=== PATIENT | female | born 1970 | race Caucasian/White ===

== ENCOUNTER 2017-09-21 17:49 | Emergency (ER) | payer OTHER ==
[~2017-09-21] VITALS: Ht 152.4 cm; Wt 83.0 kg
[~2017-09-21 17:49] MED LIST: ACYCLOVIR 5%; ALTACE10 M1 PO; ATORVASTATIN CA10 MG PO; AUGMENTIN 500M500 MG PO; INVOKANA300 MG PO; LEVOTHYROXINE0.1 MG PO; METFORMIN1000 MG PO; NORVASC 5MG TAB5 MG PO; PROTONIX 40MG T40 MG PO; REGLAN10 MG PO; TOPROL XL50 MG PO; TYLENOL500 MG PO
[2017-09-21 18:02] VITALS: BP 155/85
[2017-09-21] MEDS ORDERED: VIGAMOX3 ML OPH (19:56)
[2017-09-21] MEDS ORDERED: AUGMENTIN 875-1 EACH PO (19:56)
--- NOTE | 2017-09-21 19:57 | ED EYE COMPLAINT ---
History of Present Illness General Chief Complaint: Eye Problems Stated Complaint: REDDNESS TO R EYE, SEEN AT WALK IN [facility] Source: patient Exam Limitations: no limitations Vital Signs & Intake/Output Vital Signs & Intake/Output Vital Signs Date Time Temp Pulse Resp B/P B/P Pulse O2 O2 Flow FiO2 Mean Ox Delivery Rate 09/21 1802 96.0 95 20 155/85 97 Room Air Allergies Coded Allergies: sulfacetamide (ITCHING 09/21/17) Reconcile Medications Acetaminophen (Tylenol) 500 MG TAB 1 TAB PO PRN PAIN (Reported) Acyclovir (Unknown Strength) OIN (Unknown Dose) UNKNOWN (Reported) Amlodipine (Norvasc 5MG Tab) 5 MG TAB 1 TAB PO DAILY BP (Reported) Amoxicillin/Potassium Clav (Augmentin 875-125 Tablet) 875 MG-125 MG TABLET 1 TAB PO BID BLEPHARITIS Atorvastatin Calcium (Lipitor) 10 MG TAB 1 TAB PO DAILY CHOLESTEROL (Reported ) Augmentin (Augmentin 500-125 Tablet) 500 MG TAB 1 TAB PO BID ANTIBIOTIC ( Reported) Canagliflozin (Invokana) 300 MG TAB 1 TAB PO DAILY DIABETES (Reported) Levothyroxine Sodium 0.1 MG TAB 1 TAB PO DAILY THYROID (Reported) METFORMIN HCL (Metformin) 1,000 MG TAB 1 TAB PO BID DIABETES (Reported) METOCLOPRAMIDE HCL (Reglan) 10 MG TAB 1 TAB PO TID GI (Reported) 30 minutes before meals and bedtime Metoprolol Succinate (Toprol XL) [address] 1 TAB PO DAILY HEART (Reported) Moxifloxacin Hydrochloride (Vigamox) 0.5 % DROPS 1 GTT OPH TID BLEPHARTIS CONJNCTIVITIS Pantoprazole Sodium (Protonix) 40 MG TAB 40 MG PO DAILY ACID REFLUX Ramipril (Altace) 10 MG CAP 1 CAP PO DAILY BP (Reported) Triage Note: PT TO ED C/O RIGHT EYE REDNESS AND SWELLING. WENT TO WALK IN YESTERDAY AND GOT EYE DROPS. PT STATES THEY ARE NOT WORKING. Triage Nurses Notes Reviewed? yes Onset: Abrupt Duration: day(s): (1), constant, continues in ED, getting worse Timing: single episode today Injury Environment: home Severity: mild, moderate No Modifying Factors: none Right Eye Associated Symptoms: sensitivity to light, orbital swelling, eyelid redness, eyelid swelling LMP (ages 10-50): unknown : No Patient currently breastfeeds: No HPI: 46-year-old female past medical history of hypertension, hyperlipidemia, non- insulin-dependent diabetes presents for evaluation of right eye pain swelling and redness. Patient states symptoms started yesterday and have been persistent. She states that the pain swelling and redness is located mostly in the right upper lid and has been getting worse. She also reports that her eyeball itself is been red and irritated. She does report photophobia. There is been some clear discharge. Pain is worse with touching the eyelid. No pain with extra active motion no changes in vision she does not wear eye contact. No fevers. No sore throat ear pain chest pain shortness of breath or any other associated symptoms. She went to an urgent care yesterday and was given a prescription for Polytrim which she has been using without any improvement. (Juaquin Reyna) Past History Travel History Traveled to [place] past 21 day No Medical History Any Pertinent Medical History? see below for history Cardiovascular: hypertension, hyperlipidemia Endocrine: diabetes Surgical History Surgical History: non-contributory Psychosocial History What is your primary language Hungarian Tobacco Use: Never used ETOH Use: denies use Illicit Drug Use: denies illicit drug use Family History Hx Contributory? No (Juaquin Reyna) Review of Systems Review of Systems Constitutional: Reports: no symptoms. Eyes: Reports: see HPI, drainage, inflammation, pain, photophobia. Ear: Reports: no symptoms. Nose: Reports: no symptoms. Mouth: Reports: no symptoms. Throat: Reports: no symptoms. Respiratory: Reports: no symptoms. Cardiovascular: Reports: no symptoms. GI: Reports: no symptoms. Genitourinary: Reports: no symptoms. Musculoskeletal: Reports: no symptoms. Skin: Reports: no symptoms. Neurological/Psychological: Reports: no symptoms. Hematologic/Endocrine: Reports: no symptoms. Immunologic/Allergic: Reports: no symptoms. All Other Systems: Reviewed and Negative (Juaquin Reyna) Physical Exam General Appearance: well developed/nourished, no apparent distress, alert, awake General Inspection: normal inspection Eyelid: normal inspection, everted for exam Conjunctiva/Sclera: normal inspection, see diagram Cornea: normal inspection EOM: intact Pupil: normal accommodation, normal pupil, PERRL Anterior Chamber: normal inspection General Inspection: periorbital swelling Eyelid: everted for exam, edema, erythema Conjunctiva/Sclera: injected Cornea: normal inspection EOM: intact Pupil: normal accommodation, normal pupil, PERRL Anterior Chamber: normal inspection Posterior Segments: normal funduscopic Physical Exam Head: atraumatic, normal appearance Ears: Bilateral: canal normal, Tympanic normal. Nose: normal inspection Mouth/Throat: normal mouth inspection, pharynx normal Neck: normal inspection, supple, full range of motion Cardiovascular/Respiratory: normal breath sounds, normal peripheral pulses, regular rate/rhythm, no respiratory distress Neurologic/Psych: no motor/sensory deficits, awake, alert, oriented x 3, normal gait Skin: intact, normal color, warm/dry Comments: There is swelling and erythema of the right upper eyelid. The right upper eyelid is tender to palpation. There is no discharge no focal fluctuant areas palpable nodules. Extraocular motion is intact without pain. (Juaquin Reyna) Progress Differential Diagnosis: corneal abrasion, corneal foreign body, conjunctivitis, BLEPHARITIS, STYE, PERIORBITAL CELLULITIS, ORBITAL CELLULITIS Plan of Care: Patient seen and evaluated. She has right upper eyelid pain swelling and redness. She is afebrile appears clinically well. His no purulent discharge. She has no pain with extraocular motion. Patient will be treated with Augmentin and Vigamox. Advised her to apply warm compresses to the eye 15-20 minutes every few hours. Tylenol and ibuprofen as needed for pain and fever. Make a follow-up with an eye doctor on Saturday. Discussed return precautions in detail patient agrees the plan. (Juaquin Reyna) Departure Departure Disposition: HOME OR SELF CARE Condition: Stable Clinical Impression Primary Impression: Blepharitis of eyelid of right eye Qualifiers: Blepharitis type: unspecified type Eyelid: upper Qualified Code: H01.001 - Unspecified blepharitis right upper eyelid Referrals: Shalini ANGELA,Oseas Alcocer (PCP/Family) Additional Instructions: Take oral antibiotics as directed for the full course. Apply topical eye antibiotic as directed. Apply warm compresses for 15-20 minutes every few hours. Tylenol ibuprofen for pain. Benadryl for eye watering. Make a follow- up appointment with YOUr eye doctor for Saturday. Monitor symptoms closely return with any concerns. Departure Forms: Customer Survey General Discharge Information Prescriptions: Current Visit Scripts Amoxicillin/Potassium Clav (Augmentin 875-125 Tablet) 1 TAB PO BID #20 TAB Moxifloxacin Hydrochloride (Vigamox) 1 GTT OPH TID #3 ML (Juaquin Reyna) PA/CHASER APPRENTICE Co-Sign Statement Statement: ED Attending supervision documentation- I saw and evaluated the patient. I have also reviewed all the pertinent lab results and diagnostic results. I agree with the findings and the plan of care as documented in the PA's/CHASER APPRENTICE's documentation. x I have reviewed the ED Record and agree with the PA's/CHASER APPRENTICE's documentation. [] Additions or exceptions (if any) to the PAs/CHASER APPRENTICE's note and plan are summarized below: [] (Robby ANGELA,Richard)
== END 2017-09-21 21:04 ==
LOC: ERH 17:49
DX: H01.001 Unspecified blepharitis right upper eyelid (principal)

== ENCOUNTER 2017-12-11 12:13 | Emergency (ER) | payer OTHER ==
[~2017-12-11] VITALS: Ht 160 cm; Wt 81.6 kg
[~2017-12-11 12:13] MED LIST changes: +AUGMENTIN 875-1 EACH PO; +VIGAMOX3 ML OPH
[2017-12-11 13:08] LABS: ABSOLUTE BASOPHIL COUNT 0 /CUMM (0.0-0.2); ABSOLUTE EOSINOPHIL COUNT 0 /CUMM (0.0-0.7); ABSOLUTE GRANULOCYTE CT 8.2 /CUMM (1.4-6.5); ABSOLUTE LYMPH COUNT 1.7 /CUMM (1.2-3.4); ABSOLUTE MONOCYTE COUNT 0.3 /CUMM (0.10-0.60); BASOPHIL % 0.2 % (0.0-2.0); EOSINOPHIL % 0.3 % (0-5); HEMATOCRIT 49.3 % (37-47); MEAN CORPUSCULAR HGB 29.5 PG (27.0-31.0); MEAN CORPUSCULAR HGB CONC 33.5 G/DL (33.0-37.0); MEAN CORPUSCULAR VOLUME 88.1 FL (81.0-99.0); PLATELET COUNT 192 /CUMM (130-400); RBC DISTRIBUTION WIDTH 13.3 % (11.5-14.5); WHITE BLOOD CELL COUNT 10.3 /CUMM (4.8-10.8)
--- NOTE | 2017-12-11 13:08 | ED AMS/SEIZURE/WEAK/DIZZY ---
History of Present Illness General Chief Complaint: Nausea, Vomiting, Diarrhea Stated Complaint: VOMITING Source: patient, family Exam Limitations: no limitations Vital Signs & Intake/Output Vital Signs & Intake/Output Vital Signs Date Time Temp Pulse Resp B/P B/P Pulse O2 O2 Flow FiO2 Mean Ox Delivery Rate 12/11 1423 147/88 12/11 1219 97.1 102 20 159/91 99 Room Air Allergies Coded Allergies: sulfacetamide (ITCHING 09/21/17) Reconcile Medications Acetaminophen (Tylenol) 500 MG TAB 1 TAB PO PRN PAIN (Reported) Acyclovir (Unknown Strength) OIN (Unknown Dose) UNKNOWN (Reported) Amlodipine (Norvasc 5MG Tab) 5 MG TAB 1 TAB PO DAILY BP (Reported) Amoxicillin/Potassium Clav (Augmentin 875-125 Tablet) 875 MG-125 MG TABLET 1 TAB PO BID BLEPHARITIS Atorvastatin Calcium (Lipitor) 10 MG TAB 1 TAB PO DAILY CHOLESTEROL (Reported ) Augmentin (Augmentin 500-125 Tablet) 500 MG TAB 1 TAB PO BID ANTIBIOTIC ( Reported) Canagliflozin (Invokana) 300 MG TAB 1 TAB PO DAILY DIABETES (Reported) Levothyroxine Sodium 0.1 MG TAB 1 TAB PO DAILY THYROID (Reported) Meclizine HCl 25 MG TABLET 1 TAB PO Q6P DIZZINESS METFORMIN HCL (Metformin) 1,000 MG TAB 1 TAB PO BID DIABETES (Reported) METOCLOPRAMIDE HCL (Reglan) 10 MG TAB 1 TAB PO TID GI (Reported) 30 minutes before meals and bedtime Metoprolol Succinate (Toprol XL) [address] TAB PO DAILY HEART (Reported) Moxifloxacin Hydrochloride (Vigamox) 0.5 % DROPS 1 GTT OPH TID BLEPHARTIS CONJNCTIVITIS Ondansetron (Zofran Odt) 4 MG TAB.RAPDIS 1 TAB SL TID PRN NAUSEA Pantoprazole Sodium (Protonix) 40 MG TAB 40 MG PO DAILY ACID REFLUX Ramipril (Altace) 10 MG CAP 1 CAP PO DAILY BP (Reported) Triage Note: PT C/O FEELING DIZZY WHEN SHE MOVES HER HEAD AND STATES SHE WANTS TO VOMIT. SX STARTED AT 0300, DENIES CP/SOB, DENIES ABDOMINAL PAIN Triage Nurses Notes Reviewed? yes HPI: Patient presents with a history of dizziness as well as nausea and vomiting. Patient states the symptoms started this morning however she has had them intermittently over the past few days however it usually went away after just an hour or 2. There is no tinnitus. There is no trauma. She denies any chest pain or palpitations. Past History Travel History Traveled to [place] past 21 day No Medical History Any Pertinent Medical History? see below for history Cardiovascular: hypertension, hyperlipidemia Endocrine: diabetes Surgical History Surgical History: non-contributory Psychosocial History What is your primary language Ivorian Tobacco Use: Never used ETOH Use: denies use Illicit Drug Use: denies illicit drug use Family History Hx Contributory? No Review of Systems Review of Systems Constitutional: Reports: no symptoms. EENTM: Reports: no symptoms. Respiratory: Reports: no symptoms. Cardiovascular: Reports: no symptoms. GI: Reports: see HPI, nausea, vomiting. Genitourinary: Reports: no symptoms. Musculoskeletal: Reports: no symptoms. Skin: Reports: no symptoms. Neurological/Psychological: Reports: see HPI. Hematologic/Endocrine: Reports: no symptoms. Immunologic/Allergic: Reports: no symptoms. All Other Systems: Reviewed and Negative Physical Exam Physical Exam General Appearance: well developed/nourished, alert, awake, anxious, moderate distress Head: atraumatic, normal appearance Eyes: Bilateral: PERRL, EOMI, other (+ NYSTAGMUS). Ears, Nose, Throat: normal pharynx, normal ENT inspection, hearing grossly normal Neck: normal inspection, supple, full range of motion Respiratory: normal breath sounds, chest non-tender, no respiratory distress, lungs clear Cardiovascular: regular rate/rhythm, normal peripheral pulses Gastrointestinal: normal bowel sounds, soft, non-tender, no organomegaly Back: normal inspection, normal range of motion Extremities: normal range of motion Neurologic/Psych: no motor/sensory deficits, awake, alert, oriented x 3, normal mood/affect Skin: intact, normal color, warm/dry Lymphatic: no anterior cervical durga Core Measures ACS in differential dx? No CVA/TIA Diagnosis No Sepsis Present: No Sepsis Focused Exam Completed? No Progress Differential Diagnosis: benign positional vertigo, drug intoxication, electrolyte imbalance, labrynthitis Plan of Care: Orders Procedure Date/time Status TROPONIN LEVEL 12/11 1218 Complete LIPASE 12/11 1218 Complete COMPREHENSIVE METABOLIC PANEL 12/11 1218 Complete CBC WITHOUT DIFFERENTIAL 12/11 1217 Complete EKG 12/11 1218 Active Laboratory Tests 12/11/17 1255: Anion Gap 17 H, Estimated GFR > 60, BUN/Creatinine Ratio 32.5 H, Glucose 260 H, Calcium 10.4 H, Total Bilirubin 1.9 H, AST 30, ALT 45, Alkaline Phosphatase 96, Troponin I < 0.01, Total Protein 7.4, Albumin 4.8, Globulin 2.6, Albumin/ Globulin Ratio 1.8, Lipase 111, CBC w Diff NO MAN DIFF REQ, RBC 5.60 H, MCV 88.1, MCH 29.5, MCHC 33.5, RDW 13.3, MPV 9.0, Gran % 80.0 H, Lymphocytes % 16.6 L, Monocytes % 2.9, Eosinophils % 0.3, Basophils % 0.2, Absolute Granulocytes 8.2 H, Absolute Lymphocytes 1.7, Absolute Monocytes 0.3, Absolute Eosinophils 0 , Absolute Basophils 0 Initial ED EKG: NSR, no ST T wave changes Comments: Patient feeling much better. We'll give the patient up to ambulate. Departure Departure Disposition: HOME OR SELF CARE Condition: Stable Clinical Impression Primary Impression: Vertigo Secondary Impressions: Hyperglycemia Referrals: Nevaeh ANGELA,Christian Loya MD,Oseas Alcoecr (PCP/Family) Additional Instructions: Take Antivert as needed for the dizziness. Take Zofran as needed for nausea. Return if symptoms worsen or for any concerns. Departure Forms: Customer Survey General Discharge Information Prescriptions: Current Visit Scripts Ondansetron (Zofran Odt) 1 TAB SL TID PRN NAUSEA #10 TAB Meclizine HCl 1 TAB PO Q6P #30 TAB
[2017-12-11] MEDS ORDERED: MECLIZINE HCL25 MG PO (14:15)
[2017-12-11] MEDS ORDERED: ZOFRAN ODT4 M1 SL (14:15)
[2017-12-11 14:23] VITALS: BP 147/88
== END 2017-12-11 14:25 ==
LOC: ERH 12:13
PROVIDERS: Physician Assistant Medical
DX: R42 Dizziness and giddiness (principal); E11.65 Type 2 diabetes mellitus with hyperglycemia
CPT/HCPCS: 93005; 93010; 96374; J2405; J3101